=== PATIENT | female | born 1980 | race Caucasian/White ===

== ENCOUNTER 2017-08-31 11:20 | Emergency (ER) | payer BC, OTHER ==
[~2017-08-31] VITALS: Ht 162.6 cm; Wt 84.4 kg
--- OUTSIDE RECORDS SUMMARY | 2017-08-31 11:29 | XMS REPORT | Continuity of Care Document ---
Author Author [facility] [employer]. Organization [facility]. Address Unknown Phone Unavailable Allergies Active Description Code Type Severity Reaction Onset Reported/Identified Relationship to Patient Clinical Status Yes ALBUMIN HUMAN 3374 DRUG INGREDI N/A N&V 11/08/2012 Yes ALBUMIN HUMAN 61383 DRUG INGREDI N/A NTV 11/08/2012 Yes EGGS OR EGG-DERIVED PRODUCTS 12 Drug Class ~Food N/A N&V 11/13/2012 Yes EGGS OR EGG-DERIVED PRODUCTS 12 Drug Class ~Food N/A NTV 11/13/2012 Yes FLU VIRUS VACCINE 4522 DRUG INGREDI N/A N&V 11/13/2012 Yes FLU VIRUS VACCINE 25271 DRUG INGREDI N/A NTV 11/13/2012 Yes Albumin X810 Drug Allergy Mild VOMITING 02/07/2013 Yes MDX - Albumin X810 Drug Allergy Mild VOMITING 02/07/2013 Medications There is no data. Problems Date Dx Coded Attending Type Code Diagnosis Diagnosed By 09/26/2014 Jose Angel Cruz 599.71 09/26/2014 Jose Angel Cruz 644.03 11/10/2014 Jose Angel Cruz 530.81 11/10/2014 Jose Angel Cruz 599.0 11/10/2014 Jose Angel Cruz 646.61 11/10/2014 Jose Angel Cruz 646.81 11/10/2014 Jose Angel Cruz 648.91 11/10/2014 Jose Angel Cruz 654.21 11/10/2014 Jose Angel Cruz 659.61 11/10/2014 Jose Angel Cruz 786.09 11/10/2014 Jose Angel Cruz V02.51 11/10/2014 Jose Angel Cruz V23.5 11/10/2014 Jose Angel Cruz V23.82 11/10/2014 Jose Angel Cruz V27.0 Procedures Code Description Performed By Performed On 74.1 11/07/2014 Results Test Result Range URINALYSIS, REFLEX CULTURE IF NEEDED - 08/22/16 13:41 APPEARANCE Clear [none] BILIRUBIN UA Negative Negative COLOR Colorless [none] GLUCOSE UA Negative Negative HEMOGLOBIN UA Negative Negative LEUKOCYTE ESTERASE UA Negative Negative NITRATE UA Negative Negative PH UA 7.0 5.0-8.0 PROTEIN UA Negative Negative RBC UA 0-3 /HPF 0-3 SPECIFIC GRAVITY UA 1.002 1.003-1.030 SQUAMOUS EPITHELIAL 1+ 1+ UROBILINOGEN UA 0.2 mg/dL 0.2 WBC UA 0-3 /HPF 0-3 [id number] Negative Negative Encounters ACCT No. Visit Date/Time Discharge Status Pt. Type Provider Facility Loc./Unit Complaint [id number] 11/07/2014 08:25:00 11/07/2014 23:59:59 CLS Inpatient Jose Angel Cruz [facility] OB [id number] 09/26/2014 17:04:00 09/26/2014 18:30:00 DIS Outpatient Jose Angel Cruz [facility] LDRO [id number] 06/04/2014 09:51:00 06/04/2014 23:59:59 CLS Outpatient Jose Angel Cruz [facility] COL.RAD [id number] 07/25/2013 10:35:00 07/25/2013 23:59:59 CLS Outpatient [id number] 07/18/2013 05:37:00 07/21/2013 17:50:00 DIS Inpatient [id number] 06/28/2013 21:01:00 06/28/2013 23:59:59 CLS Outpatient [id number] 02/07/2013 09:47:00 02/07/2013 14:45:00 DIS Outpatient [id number] 11/21/2016 13:42:01 11/21/2016 23:59:59 CLS Outpatient [facility] LAB [id number] 11/21/2016 09:10:59 11/21/2016 23:59:59 CLS Outpatient EDUARDO BUITRAGO [facility] [id number] 08/22/2016 13:28:09 08/22/2016 23:59:59 [facility] Outpatient [facility] [id number] 08/22/2016 13:27:38 08/22/2016 23:59:59 [facility] Outpatient EDUARDO BUITRAGO [facility] [id number] 03/08/2016 11:30:27 03/08/2016 23:59:59 [facility] Outpatient TRACY COOL [facility] [id number] 08/22/2016 09:56:52 Document Registration
[2017-08-31] MEDS ORDERED: PNV1TABL81 PO (12:07)
[2017-08-31] MEDS ORDERED: FOLI0.8C PO (12:07)
[2017-08-31 12:08] LABS: BASOPHILS % (AUTO) 0 % (0-10); EOSINOPHILS # (AUTO) 0.2 10^3/uL (0.0-0.3); EOSINOPHILS % (AUTO) 2 % (0-10); LYMPHOCYTES # (AUTO) 1.9 X 10^3 (1.0-4.0); LYMPHOCYTES % (AUTO) 21 % (12-44); MEAN CORPUSCULAR HEMOGLOBIN 32 PG (25-34); MEAN CORPUSCULAR HGB CONC 35 G/DL (32-36); MEAN CORPUSCULAR VOLUME 93 FL (80-99); MEAN PLATELET VOLUME 10.6 FL (7.4-10.4); MONOCYTES # (AUTO) 0.6 X 10^3 (0.0-1.0); MONOCYTES % (AUTO) 6 % (0-12); NEUTROPHILS # (AUTO) 6.7 X 10^3 (1.8-7.8); NEUTROPHILS % (AUTO) 71 % (42-75); PLATELET COUNT 248 10^3/uL (130-400); RED BLOOD COUNT 4.46 10^6/uL (4.35-5.85); RED CELL DISTRIBUTION WIDTH 13.6 % (10.0-14.5); WHITE BLOOD COUNT 9.4 10^3/uL (4.3-11.0)
[2017-08-31 12:25] LABS: ANION GAP 10 MMOL/L (5-14); BLOOD UREA NITROGEN 8 MG/DL (7-18); BUN/CREATININE RATIO 11; CALCIUM 9.1 MG/DL (8.5-10.1); CARBON DIOXIDE 22 MMOL/L (21-32); CHLORIDE 107 MMOL/L (98-107); CREATININE SERUM 0.76 MG/DL (0.60-1.30); GFR ESTIMATED > 60; GLUCOSE 85 MG/DL (70-105); POTASSIUM 3.7 MMOL/L (3.6-5.0); SODIUM 139 MMOL/L (135-145)
--- NOTE | 2017-08-31 13:29 | ED GU-Female ---
General Chief Complaint: -Female Stated Complaint: POSS MISCARRIAGE Nursing Triage Note: PT. STATES SHE STARTED BLEEDING LAST NIGHT. SHE DOES NOT SOAK THE PAD BUT BLEEDING IS STEADY. SHE DOES HAVE CRAMPING WHICH SHE RATES AT A "1". tHIS IS THE PT'S 5TH WITH A MISCARRIAGE AND DEMISE. THEREFORE PT. IS CONCERNED. HER OBGYN IS IN [place]. Nursing Sepsis Screen: No Definite Risk Allergies and Home Medications Allergies Coded Allergies: albumin colloid, human (Unverified Allergy, Unknown, NAUSEA, 08/31/17) PT. STATES SHE THROWS UP WITH ALBUMIN. SHE DOES NOT TAKE THE FLU SHOT FOR THAT REASON Home Medications Folic Acid 0.8 Mg Capsule, 3,200 MCG PO DAILY, (Reported) Pnv No.122/Iron/Folic Acid 1 Each Tablet, 1 EACH PO DAILY, (Reported) Past Ifcuhia-Rvtxqh-Unlpuu Hx Patient Social History Alcohol Use: Occasionally Uses Recreational Drug Use: No 2nd Hand Smoke Exposure: No Recent Foreign Travel: No Contact w/Someone Who Travel: No Recent Infectious Disease Expo: No Surgeries History of Surgeries: Yes ( SURGERY DEMISE) Respiratory History of Respiratory Disorde: No Cardiovascular History of Cardiac Disorders: No Neurological History of Neurological Disord: No Reproductive System Sexually Transmitted Disease: No Female Reproductive Disorders: Endometriosis Genitourinary History of Genitourinary Disor: Yes Genitourinary Disorders: Kidney Stones Gastrointestinal History of Gastrointestinal Di: No Musculoskeletal History of Musculoskeletal Dis: No Endocrine History of Endocrine Disorders: No HEENT History of HEENT Disorders: No Cancer History of Cancer: No Psychosocial History of Psychiatric Problem: No Physical Exam Vital Signs Vital Sign - Last 12Hours 08/31/17 12:28 Temp 98.4 Pulse 78 Resp 18 B/P (MAP) 144/78 (100) Pulse Ox 97 Capillary Refill : Less Than 3 Seconds Progress/Results/Core Measures Suspected Sepsis Recent Fever Within 48 Hours: No Infection Criteria Present: None New/Unexplained Altered Menta: No Sepsis Screen: No Definite Risk Sepsis Diagnosis: SIRS Temperature:98.4 Pulse: 78 Respiratory Rate: 18 Laboratory Tests 08/31/17 11:58: White Blood Count 9.4 Blood Pressure 144 /78 Mean: 100 Laboratory Tests 08/31/17 11:58: Creatinine 0.76, Platelet Count 248 Results/Orders Lab Results Laboratory Tests Test 08/31/17 11:58 Range/Units White Blood Count 9.4 4.3-11.0 10^3/uL Red Blood Count 4.46 4.35-5.85 10^6/uL Hemoglobin 14.3 11.5-16.0 G/DL Hematocrit 42 35-52 % Mean Corpuscular Volume 93 80-99 FL Mean Corpuscular Hemoglobin 32 25-34 PG Mean Corpuscular Hemoglobin Concent 35 32-36 G/DL Red Cell Distribution Width 13.6 10.0-14.5 % Platelet Count 248 130-400 10^3/uL Mean Platelet Volume 10.6 H 7.4-10.4 FL Neutrophils (%) (Auto) 71 42-75 % Lymphocytes (%) (Auto) 21 12-44 % Monocytes (%) (Auto) 6 0-12 % Eosinophils (%) (Auto) 2 0-10 % Basophils (%) (Auto) 0 0-10 % Neutrophils # (Auto) 6.7 1.8-7.8 X 10^3 Lymphocytes # (Auto) 1.9 1.0-4.0 X 10^3 Monocytes # (Auto) 0.6 0.0-1.0 X 10^3 Eosinophils # (Auto) 0.2 0.0-0.3 10^3/uL Basophils # (Auto) 0.0 0.0-0.1 10^3/uL Sodium Level 139 135-145 MMOL/L Potassium Level 3.7 3.6-5.0 MMOL/L Chloride Level 107 98-107 MMOL/L Carbon Dioxide Level 22 21-32 MMOL/L Anion Gap 10 5-14 MMOL/L Blood Urea Nitrogen 8 7-18 MG/DL Creatinine 0.76 0.60-1.30 MG/DL Estimat Glomerular Filtration Rate > 60 BUN/Creatinine Ratio 11 Glucose Level 85 70-105 MG/DL Calcium Level 9.1 8.5-10.1 MG/DL Human Chorionic Gonadotropin, Quant 837 H <5 MIU/ML My Orders Orders - TIN COSTA DO Abo Rh Type (08/31/17 12:02) Basic Metabolic Panel (08/31/17 12:02) Cbc With Automated Diff (08/31/17 12:02) Hcg,Quantitative (08/31/17 12:02) Us Ob<14 Wks Sngle W/Transvag (08/31/17 12:02) Vital Signs/I&O Vital Sign - Last 12Hours 08/31/17 12:28 Temp 98.4 Pulse 78 Resp 18 B/P (MAP) 144/78 (100) Pulse Ox 97 Capillary Refill : Less Than 3 Seconds Blood Pressure Mean: 100 Departure Impression Impression: Primary Impression: Threatened in first trimester Disposition: 01 HOME, SELF-CARE Condition: Stable Departure-Patient Inst. Referrals: NO,LOCAL PHYSICIAN (PCP/Family) Primary Care Physician Patient Instructions: Threatened Miscarriage (DC) Add. Discharge Instructions: NOTHING IN VAGINA--NO TAMPONS, DOUCHING OR INTERCOURSE LOTS OF FLUIDS KEEP AN ACCURATE PAD COUNT--RETURN TO ER IF YOU SOAK MORE THAN 1 MAXI PAD AN HOUR TYLENOL NEEDED FOR PAIN --RETURN TO ER IF PAIN BECOMES SEVERE KEEP YOUR APPOINTMENT NEXT WEEK WITH YOUR HARNESS INSPECTOR All discharge instructions reviewed with patient and/or family. Voiced understanding. TIN COSTA DO Aug 31, 2017 13:29
--- NOTE | 2017-08-31 13:31 | Diagnostic Imaging Report ---
OB ultrasound. INDICATION: Vaginal bleeding. FINDINGS: There is a cystic structure in the endometrial stripe seen which could be a gestational sac. It is associated with a mean sac diameter of 5 mm. No embryo or yolk sac is seen at this time. No subchorionic hemorrhage is seen. The size of the sac could correlate with 5 weeks and 0 days gestation and with CLAUDIO of 05/03/2018. The right ovary is 2.7 x 1.6 x 2.3 cm in size and demonstrates color Doppler vascularity. The left ovary is obscured by bowel gas. IMPRESSION: Suggestion of a gestational sac in the endometrial stripe. This is likely a very early normal . Serial beta-hCG and follow-up ultrasound in one week is recommended to confirm findings. Pseudo-gestational sac of ectopic or failed is not entirely excluded. Correlate clinically. Dictated by: Dictated on workstation # [id number]
[2017-08-31 18:26] VITALS: BP 138/82
== END 2017-08-31 13:45 | disposition home or self-care (01) ==
LOC: ER 11:25
DX: O20.0 Threatened abortion (principal); Z3A.01 Less than 8 weeks gestation of pregnancy; Z87.442 Personal history of urinary calculi; Z87.59 Personal history of other complications of pregnancy, childbirth and the puerperium
CPT/HCPCS: 36415; 76801; 76817; 80048; 84702; 85025; 86900; 86901; 99282

== ENCOUNTER → 2018-05-25 | Outpatient (CLI) | payer BC ==
[~2018-05-25] MED LIST: FOLI0.8C PO; PNV1TABL81 PO
--- NOTE | 2018-05-25 17:22 | Diagnostic Imaging Report ---
INDICATION: Large for gestational age. TECHNIQUE: Multiple real-time grayscale images were obtained over the gravid uterus. COMPARISON: None relevant. FINDINGS: Single live intrauterine with anatomic measurements corresponding to a 35 week, 4 day gestation. Grade 2 posterior placenta. heart rate 155 beats per minute and regular. Fetus is in transverse presentation. EDGAR 14.0. Biometrical measurements are as follows: Biparietal 8.70 cm, age 35 weeks 1 days. Head circumference 33.38 cm, age 38 weeks 2 days. Abdominal circumference 31.19 cm, age 35 weeks 1 days. Femur length 6.46 cm, age 33 weeks 3 days. Sonographic estimate age: 35 weeks 4 days. Sonographic estimated date of delivery: 06/25/18. Estimated Weight: 2556 gm (+/- 373 gm). LMP percentile: 85%. heart rate: 155 beats per minute. number: 1 of 1. IMPRESSION: Single live intrauterine with anatomic measurements corresponding to a 35 week, 4 day gestation. Dictated by: Dictated on workstation # [id number]
== END ==
LOC: RAD 16:12
PROVIDERS: ATTEND Obstetrics & Gynecology
DX: O36.63X0 Maternal care for excessive fetal growth, third trimester, not applicable or unspecified (principal); Z3A.35 35 weeks gestation of pregnancy
CPT/HCPCS: 76805

== ENCOUNTER → 2019-05-10 | Outpatient (CLI) | payer BC ==
--- NOTE | 2019-05-10 21:01 | Diagnostic Imaging Report ---
INDICATION: Breast pain. EXAMINATION: Left breast ultrasound, complete. COMPARISON: There are no prior studies available for comparison. FINDINGS: There is no discrete solid or cystic mass within the left breast. There is no sign of an abscess either. Reportedly, the patient has a baseline mammogram scheduled. IMPRESSION: 1. There is no evidence for malignancy or for an acute abnormality. Clinical followup is recommended. 2. A baseline mammogram is pending. ACR BI-RADS Category 1: Negative. Result letter will be mailed to the patient. Note: At least 10% of breast cancer is not imaged by mammography. Dictated by: Dictated on workstation # [id number]
== END ==
LOC: RAD 09:16
PROVIDERS: ATTEND Physician Assistant Medical
DX: N64.4 Mastodynia (principal)
CPT/HCPCS: 76641

== ENCOUNTER 2020-04-07 22:56 | Emergency (ER) | payer BC, OTHER ==
[~2020-04-07] VITALS: Ht 162 cm; Wt 88.5 kg
--- NOTE | 2020-04-07 23:23 | ED GU-Female ---
General Chief Complaint: OB < 20 WEEKS Stated Complaint: SPOTTING, ABD CRAMPING 12 WKS Source: patient History of Present Illness Date Seen by Provider: Apr 07, 2020 Time Seen by Provider: 23:10 Initial Comments PT ARRIVES VIA POV FROM HOME STATES IMMEDIATELY PRIOR TO ARRIVAL, SHE BEGAN "SPOTTING" --WAS JUST A SMALL AMOUNT OF DARK ROWN BLOOD ON TISSUE WITH WIPING AFTER VOIDING. IS NOT BLEEDING NOW, AND HAS NOT USED ANY PADS THINKS MAYBE SHE HAS HAD SLIGHT LOWER ABDOMINAL/PELVIC CRAMPING--BUT "JUST BARELY" NO URINARY SYMPTOMS PT IS 12 WEEKS WITH LMP OF 01/15/[address] CRAWFORD ON 03/26/20 AND HAD A NORMAL ULTRASOUND AT THAT TIME. 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, BILATERAL CLUB FEET, HYDROCEPHALUS, AND GRADE 2 CHIARI MALFORMATION--PT HAD IN-UTERO "OPEN SURGERY"--CHILD LATER SOMETIME AFTER -2ND CHILD--NORMAL -3RD CHILD--SPOTTING AND ALSO PASSED KIDNEY STONES DURING -4TH AND 5TH PREGNANCIES ENDED IN MISCARRIAGES -6TH CHILD--SPOTTING AND LOTS OF NAUSEA/VOMITING PT HAS HAD X 4 PT HAS HAD SIGNIFICANT NAUSEA AND VOMITING WITH THIS --TAKES ZOFRAN 8 MG BID EVERY DAY, AND PHENERGAN 12.5 MG SUPPOSITORY AT LEAST ONCE A DAY NO FEVER OR RECENT ILLNESS PCP: NONE--USED TO SEE A DR AT [facility] IN [place], BUT HAS SINCE LEFT THE PRACTICE [employer]NF[employer]CEMENT MAJOR: DR. CRAWFORD Allergies and Home Medications Allergies Coded Allergies: albumin colloid, human (Unverified Allergy, Unknown, NAUSEA, 08/31/17) PT. STATES SHE THROWS UP WITH ALBUMIN. SHE DOES NOT TAKE THE FLU SHOT FOR THAT REASON Home Medications Folic Acid 0.8 Mg Capsule, 3,200 MCG PO DAILY, (Reported) Nitrofurantoin Monohyd/M-Cryst 100 Mg Capsule, 1 TAB PO BID Prescribed by: TIN COSTA on 04/08/20 0119 Pnv No.122/Iron/Folic Acid 1 Each Tablet, 1 EACH PO DAILY, (Reported) Patient Home Medication List Home Medication List Reviewed: Yes Review of Systems Review of Systems Constitutional: no symptoms reported; No chills, No diaphoresis, No dizziness, No fever Respiratory: no symptoms reported Cardiovascular: no symptoms reported Gastrointestinal: see HPI, abdominal pain, nausea, vomiting Genitourinary: see HPI : Yes LMP: January 15, 2020 Musculoskeletal: no symptoms reported; No back pain Skin: no symptoms reported Psychiatric/Neurological: No Symptoms Reported Endocrine: No Symptoms Reported Hematologic/Lymphatic: No Symptoms Reported Past Wqmowbk-Useoss-Zqoxia Hx Past Med/Social Hx: Reviewed and Corrections made Patient Social History Alcohol Use: Occasionally Uses Recreational Drug Use: No Smoking Status: Never a Smoker 2nd Hand Smoke Exposure: No Recent Foreign Travel: No Contact w/Someone Who Travel: No Past Medical History Surgeries: Yes (OPEN SURGERY/ DEMISE; X 4;7 SURGERIES- ENDOMETRIOSIS) Abdominal, Section Respiratory: No Cardiac: No Neurological: No : Yes Last Menstrual Period: January 15, 2020 Hx : 6 (1ST CHILD-CONGENITAL DEFORMITIES AND HAD OPEN SURGERY--SPINA BIFIDA, BILATERAL CLUB FEET, HYDROCEPHALUS, CHIARI 2 MALFORMATIONHAD DEMISE-2ND [id number] CHILD-SPOTTING AND PASSED KIDNEY STONE-4TH AND 5TH PREGNANCIES--MISCARRIAGES-6TH --SPOTTING AND SIGNIFICANT NAUSEA/VOMITING) Hx Para: 4 Hx Total # of Abortions (Sp): 2 (4TH AND 5TH PREGNANCIES) Reproductive Disorders: Yes (7 SURGERIES FOR ENDOMETRIOSIS; OPEN SURGERY) Female Reproductive Disorders: Endometriosis Sexually Transmitted Disease: No Genitourinary: Yes Bladder Infection, Kidney Stones Gastrointestinal: No Musculoskeletal: No Endocrine: No HEENT: No Cancer: No Psychosocial: No Integumentary: No Blood Disorders: No Physical Exam Vital Signs Vital Signs - First Documented 04/07/20 23:02 Temp 37.1 Pulse 92 Resp 17 B/P (MAP) 151/85 (107) Pulse Ox 98 O2 Delivery Room Air Capillary Refill : Height, Weight, BMI Height: 5'4.00" Weight: 186lbs. oz. 84.440053km; BMI Method:Stated General Appearance: WD/WN, no apparent distress, other (ANXIOUS) Cardiovascular: regular rate, rhythm, no murmur Respiratory: normal breath sounds, no respiratory distress, no accessory muscle use Gastrointestinal: normal bowel sounds, non tender, soft, no organomegaly, no pulsatile mass Pelvic: other (NO VAGINAL BLEEDING AT THIS TIME) Back: no CVA tenderness Extremities: normal inspection Neurologic/Psychiatric: coffee brewer II-XII nml as tested, no motor/sensory deficits, alert, oriented x 3 Skin: normal color, warm/dry Progress/Results/Core Measures Suspected Sepsis SIRS Temperature: Pulse: Respiratory Rate: Laboratory Tests 04/07/20 23:24: White Blood Count 10.2 Blood Pressure / Mean: Laboratory Tests 04/07/20 23:24: Creatinine 0.72, Platelet Count 267 Results/Orders Lab Results Laboratory Tests Test 04/07/20 23:07 04/07/20 23:24 Range/Units Urine Color YELLOW Urine Clarity SL CLOUDY Urine pH 6.0 5-9 Urine Specific [place] 1.020 1.016-1.022 Urine Protein NEGATIVE NEGATIVE Urine Glucose (UA) NEGATIVE NEGATIVE Urine Ketones NEGATIVE NEGATIVE Urine Nitrite NEGATIVE NEGATIVE Urine Bilirubin NEGATIVE NEGATIVE Urine Urobilinogen 0.2 < = 1.0 MG/DL Urine Leukocyte Esterase TRACE H NEGATIVE Urine RBC (Auto) 2+ H NEGATIVE Urine RBC 2-5 H /HPF Urine WBC 0-2 /HPF Urine Squamous Epithelial Cells 5-10 /HPF Urine Crystals NONE /LPF Urine Bacteria MODERATE H /HPF Urine Casts NONE /LPF Urine Mucus SMALL H /LPF Urine Culture Indicated YES White Blood Count 10.2 4.3-11.0 10^3/uL Red Blood Count 4.15 L 4.35-5.85 10^6/uL Hemoglobin 13.0 11.5-16.0 G/DL Hematocrit 38 35-52 % Mean Corpuscular Volume 91 80-99 FL Mean Corpuscular Hemoglobin 31 25-34 PG Mean Corpuscular Hemoglobin Concent 34 32-36 G/DL Red Cell Distribution Width 14.0 10.0-14.5 % Platelet Count 267 130-400 10^3/uL Mean Platelet Volume 10.4 7.4-10.4 FL Neutrophils (%) (Auto) 70 42-75 % Lymphocytes (%) (Auto) 22 12-44 % Monocytes (%) (Auto) 6 0-12 % Eosinophils (%) (Auto) 3 0-10 % Basophils (%) (Auto) 0 0-10 % Neutrophils # (Auto) 7.1 1.8-7.8 X 10^3 Lymphocytes # (Auto) 2.2 1.0-4.0 X 10^3 Monocytes # (Auto) 0.6 0.0-1.0 X 10^3 Eosinophils # (Auto) 0.3 0.0-0.3 10^3/uL Basophils # (Auto) 0.0 0.0-0.1 10^3/uL Sodium Level 138 135-145 MMOL/L Potassium Level 3.5 L 3.6-5.0 MMOL/L Chloride Level 106 98-107 MMOL/L Carbon Dioxide Level 19 L 21-32 MMOL/L Anion Gap 13 5-14 MMOL/L Blood Urea Nitrogen 10 7-18 MG/DL Creatinine 0.72 0.60-1.30 MG/DL Estimat Glomerular Filtration Rate > 60 BUN/Creatinine Ratio 14 Glucose Level 97 70-105 MG/DL Calcium Level 9.6 8.5-10.1 MG/DL Human Chorionic Gonadotropin, Quant [id number] H <5 MIU/ML My Orders Orders - TIN COSTA DO Abo Rh Type (04/07/20 23:21) Basic Metabolic Panel (04/07/20 23:21) Cbc With Automated Diff (04/07/20 23:21) Hcg,Quantitative (04/07/20 23:21) Ua Culture If Indicated (04/07/20 23:21) Heart Tones (04/07/20 23:21) Urine Culture (04/07/20 23:07) Nitrofurantoin Capsule,Macro (Macrobid C (04/08/20 01:15) Vital Signs/I&O 04/07/20 23:02 Temp 37.1 Pulse 92 Resp 17 B/P (MAP) 151/85 (107) Pulse Ox 98 O2 Delivery Room Air Capillary Refill : Progress Note : Progress Note FHR 160'S NO VAGINAL BLEEDING NO PAIN OR CRAMPING DURING ER STAY NO ULTRASOUND AVAILABLE HERE AT THIS TIME PT FEELS COMFORTABLE GOING HOME, PT STATES SHE HAS HAD SPOTTING WITH 3 OF HER 7 PREGNANCIES Departure Impression Primary Impression: Threatened in early Additional Impression: UTI (urinary tract infection) in in first trimester Disposition: HOME, SELF-CARE Condition: Stable Departure-Patient Inst. Referrals: NATALYA ANTUNEZ (PCP) Primary Care Physician AVIS CRAWFORD DO Patient Instructions: Bleeding With (DC), Urinary Tract Infections in , Threatened Miscarriage (DC) Add. Discharge Instructions: LOTS OF CLEAR LIQUIDS--NO COFFEE, POP OR TEA NOTHING IN VAGINA--NO TAMPONS, DOUCHING OR INTERCOURSE KEEP AN ACCURATE PAD COUNT--RETURN IF SOAKING MORE THAN 1 MAXI PAD AN HOUR FOLLOW UP WITH DR. CRAWFORD THIS WEEK FOR FURTHER CARE--CALL IN AM TO MAKE AN APPOINTMENT All discharge instructions reviewed with patient and/or family. Voiced understanding. Scripts Nitrofurantoin Monohyd/M-Cryst (Macrobid 100 mg Capsule) 100 Mg Capsule 1 TAB PO BID, #20 CAP Prov: TIN COSTA DO 04/08/20 TIN COSTA DO Apr 07, 2020 23:23
[2020-04-07 23:31] LABS: BILIRUBIN,URINE NEGATIVE (NEGATIVE); CLARITY,URINE SL CLOUDY; COLOR,URINE YELLOW; GLUCOSE, URINE (UA) NEGATIVE (NEGATIVE); KETONES,URINE NEGATIVE (NEGATIVE); LEUKOCYTE ESTERASE ,URINE TRACE (NEGATIVE); NITRITE,URINE NEGATIVE (NEGATIVE); PROTEIN,URINE NEGATIVE (NEGATIVE)
[2020-04-07 23:44] LABS: BASOPHILS % (AUTO) 0 % (0-10); EOSINOPHILS # (AUTO) 0.3 10^3/uL (0.0-0.3); EOSINOPHILS % (AUTO) 3 % (0-10); HEMATOCRIT 38 % (35-52); LYMPHOCYTES # (AUTO) 2.2 X 10^3 (1.0-4.0); LYMPHOCYTES % (AUTO) 22 % (12-44); MEAN CORPUSCULAR HEMOGLOBIN 31 PG (25-34); MEAN CORPUSCULAR HGB CONC 34 G/DL (32-36); MEAN CORPUSCULAR VOLUME 91 FL (80-99); MEAN PLATELET VOLUME 10.4 FL (7.4-10.4); MONOCYTES # (AUTO) 0.6 X 10^3 (0.0-1.0); MONOCYTES % (AUTO) 6 % (0-12); NEUTROPHILS # (AUTO) 7.1 X 10^3 (1.8-7.8); NEUTROPHILS % (AUTO) 70 % (42-75); PLATELET COUNT 267 10^3/uL (130-400); WHITE BLOOD COUNT 10.2 10^3/uL (4.3-11.0)
[2020-04-07 23:48] LABS: BACTERIA,URINE MODERATE /HPF; WBC,URINE 0-2 /HPF
[2020-04-07 23:52] LABS: CHLORIDE 106 MMOL/L (98-107); POTASSIUM 3.5 MMOL/L (3.6-5.0); SODIUM 138 MMOL/L (135-145)
[2020-04-07 23:54] LABS: CALCIUM 9.6 MG/DL (8.5-10.1); GLUCOSE 97 MG/DL (70-105)
[2020-04-07 23:56] LABS: CARBON DIOXIDE 19 MMOL/L (21-32)
[2020-04-07 23:58] LABS: CREATININE SERUM 0.72 MG/DL (0.60-1.30); GFR ESTIMATED > 60
[2020-04-07 23:59] LABS: BUN/CREATININE RATIO 14
--- OUTSIDE RECORDS SUMMARY | 2020-04-08 00:27 | XMS REPORT | Continuity of Care Document ---
Author Author [facility] Organization [facility] Address Unknown Phone Unavailable Care Team Providers Care Design Chief Name Role Phone Unavailable Unavailable Insurance Providers Payer Name Policy Type C overed Libertarian Covered Libertarian Id Relationship Subscriber Subscriber Id [facility] [id number] ATTILA JARRETT [id number] Problems No Known Problems or Medical conditions. Allergies, Adverse Reactions, Alerts Allergen Type Severity Reaction Last Updated Albumin Allergy Mild VOMITING 02/07/13 Medications Medication Dose Route Sig Days/Qty ZOFRAN 4MG T4 MG/TAB (Ondansetron) 4 PO PRN FOLIC [id number] MCG (Folic Acid) 3200 MCG QD B-6100 MG (Pyridoxine) 100 PO QD Vital Signs Vital Reading Collection Date/Time Result Blood Pressure 02/07/13 2:30pm 128/70 Ortho 02/07/13 10:00am S I Temperature 02/07/13 2:30pm 98.2 Source 02/07/13 2:30pm O Respirations 02/07/13 2:30pm 16 Pulse 02/07/13 2:30pm 80 Height(cm) 02/07/13 10:02am 162.6 Height(ft) 02/07/13 10:02am 5 Height(in) 02/07/13 10:02am 04 Weight(Kg) 02/07/13 10:02am 74.5 Weight(lbs) 02/07/13 10:02am 164.0 Results No Known Relevant Diagnostic Tests, Laboratory Data and/or Discharge Summary. Encounters Encounter Location Date/ Time Departed Clinical [facility] 02/07/13 2:45pm
[2020-04-08] MEDS ORDERED: NITROFURANTOIN 100 MG (MACROBID) CAPSULE PO ONE (01:15)
[2020-04-08] MEDS ORDERED: NITR-65 PO (01:19)
[2020-04-08 01:38] VITALS: BP 137/97
== END 2020-04-08 01:38 | disposition home or self-care (01) ==
LOC: EDUNIT# 22:56 → ER 22:58
DX: O20.0 Threatened abortion (principal); O23.41 Unspecified infection of urinary tract in pregnancy, first trimester; Z3A.12 12 weeks gestation of pregnancy; Z88.8 Allergy status to other drugs, medicaments and biological substances
CPT/HCPCS: 36415; 80048; 81000; 84702; 85025; 86900; 86901; 87088

== ENCOUNTER → 2020-06-03 | Outpatient (CLI) | payer OTHER ==
[~2020-06-03] MED LIST changes: +NITR-65 PO
--- NOTE | 2020-06-03 14:20 | Diagnostic Imaging Report ---
INDICATION: survey. TECHNIQUE: Multiple real-time grayscale images were obtained over the gravid uterus. COMPARISON: None FINDINGS: There is a single live fetus in a transverse presentation with head to maternal right. heart rate was recorded at 150 bpm. Placenta is posterior. No previa is detected. Amniotic fluid volume is normal. survey demonstrates kidneys to show some slight renal pelvic dilatation measuring 5-6 mm. bladder and stomach are unremarkable. brain is unremarkable. There is a four-chamber heart. There is a three-vessel cord with normal insertion. spine is unremarkable. Biometrical measurements are as follows: Biparietal 4.53 cm, age 19 weeks 5 days. Head circumference 18.04 cm, age 20 weeks 4 days. Abdominal circumference 15.45 cm, age 20 weeks 5 days. Femur length 3.36 cm, age 20 weeks 4 days. Sonographic estimate age: 20 weeks 3 days. Sonographic estimated date of delivery: 10/18/2020. Estimated Weight: 361 gm (+/- 53 gm). LMP percentile: 76%. heart rate: 150 beats per minute. number: 1 of 1. IMPRESSION: 1. Single live IUP measuring 20 weeks 3 days gestational age. Estimated date of confinement sonographically is 10/18/2020. 2. survey is unremarkable apart from minimal dilatation of the renal pelves bilaterally. Follow-up could be performed. The study is otherwise unremarkable. Dictated by: Dictated on workstation # [id number]
== END ==
LOC: RAD 10:15
PROVIDERS: ATTEND Nurse Practitioner Women's Health
DX: Z34.92 Encounter for supervision of normal pregnancy, unspecified, second trimester (principal); Z3A.20 20 weeks gestation of pregnancy
CPT/HCPCS: 76805

== ENCOUNTER → 2020-07-22 | Outpatient (CLI) | payer OTHER ==
--- NOTE | 2020-07-22 13:13 | Diagnostic Imaging Report ---
INDICATION: Follow-up anatomy. TECHNIQUE: Multiple real-time grayscale images were obtained over the gravid uterus. COMPARISON: 06/03/2020. FINDINGS: There is a single live fetus in a cephalic presentation. heart rate was recorded at 149 bpm. The placenta is posterior and appears to be low lying in position. No definite previa is seen. The placental tip to the internal os is approximately 2.8 cm. Amniotic fluid index is approximately 16 cm. Evaluation of kidneys does show some continued slight renal pelvic dilatation measuring 7 mm on the right and 5 mm on the left. No other abnormality is detected. Biometrical measurements are as follows: Biparietal 6.81 cm, age 27 weeks 3 days. Head circumference 26.33 cm, age 28 weeks 5 days. Abdominal circumference 23.8 cm, age 28 weeks 1 days. Femur length 5.09 cm, age 27 weeks 2 days. Sonographic estimate age: 28 weeks 0 days. Sonographic estimated date of delivery: 10/14/2020. Estimated Weight: 1133 gm (+/- 165 gm). LMP percentile: 72%. heart rate: 149 beats per minute. number: 1 of 1. IMPRESSION: Single live IUP 28 weeks gestational age. There is a low-lying posterior placenta. Minimal renal pelvic dilatation appears to be stable when compared with exam from 06/03/2020. Dictated by: Dictated on workstation # [id number]
== END ==
LOC: RAD 12:30
PROVIDERS: ATTEND Obstetrics & Gynecology
DX: Z34.93 Encounter for supervision of normal pregnancy, unspecified, third trimester (principal); Z3A.28 28 weeks gestation of pregnancy
CPT/HCPCS: 76805

== ENCOUNTER → 2020-08-21 | Outpatient (CLI) | payer OTHER ==
--- NOTE | 2020-08-21 16:29 | Diagnostic Imaging Report ---
INDICATION: Supervision of . TECHNIQUE: Multiple real-time grayscale images were obtained over the gravid uterus. COMPARISON: 07/22/2020 FINDINGS: A single live intrauterine gestation is visualized in cephalic presentation. The placenta is posterior and not low lying measuring 6.5 cm from the cervix. heart rate is 147 bpm. The EDGAR measures 16.5 cm. There is upper limits of normal prominence of the right renal pelvis measuring 0.7 cm. The left kidney is unremarkable. The bladder, stomach, four-chamber heart, three-vessel cord, cord insertion are visualized and have a normal appearance. The intracranial contents and spine are not well seen due to position. Biometrical measurements are as follows: Biparietal 7.84 cm, age 31 weeks 4 days. Head circumference 29.03 cm, age 32 weeks 0 days. Abdominal circumference 28.11 cm, age 32 weeks 2 days. Femur length 6.16 cm, age 32 weeks 0 days. Sonographic estimate age: 32 weeks 0 days. Sonographic estimated date of delivery: 10/16/2020. Estimated Weight: 1884 gm (+/- 275 gm). LMP percentile: 39%. heart rate: 147 beats per minute. number: 1 of 1. Biophysical profile score is 8 out of 8. IMPRESSION: 1. Single live intrauterine gestation measuring 32 weeks 0 days with an estimated due date of 10/16/2020. These are concordant with the clinical dates. 2. Borderline pyelectasis on the right. Recommend follow-up as indicated. The remaining visualized anatomic structures are normal in appearance. Dictated by: Dictated on workstation # [id number]
== END ==
LOC: RAD 09:39
PROVIDERS: ATTEND Obstetrics & Gynecology
DX: O09.523 Supervision of elderly multigravida, third trimester (principal); Z3A.32 32 weeks gestation of pregnancy
CPT/HCPCS: 76805; 76819

== ENCOUNTER 2020-09-23 05:28 | Outpatient (RCR) | payer OTHER ==
[~2020-09-23] VITALS: Ht 163 cm; Wt 90.5 kg
[~2020-09-23 05:28] MED LIST changes: +ASCO500C17 PO; +FAMO20TA3 PO; +FERR142T7 PO; +NIFE10CA PO; +PEDI18TA2 PO
== END 2020-09-23 14:19 | disposition home or self-care (01) ==
LOC: PREOP 05:28
PROVIDERS: ATTEND Obstetrics & Gynecology
DX: Z01.812 Encounter for preprocedural laboratory examination (principal); O09.899 Supervision of other high risk pregnancies, unspecified trimester; Z3A.00 Weeks of gestation of pregnancy not specified; Z20.822 Contact with and (suspected) exposure to COVID-19
CPT/HCPCS: 87635

== ENCOUNTER 2020-09-28 06:11 | Inpatient (IN) | payer OTHER ==
--- NOTE | 2020-09-27 21:20 | History & Physical-OB ---
OB - Chief Complaint & HPI Date/Time Date of Admission: Date of Admission: 09/28/2020 Time Seen by a Provider: 07:00 Chief Complaint/History OB-Reason for Admission/Chief: Section (previous history of classical (midline) section; [facility] recommends delivery at 37 weeks due to risk of rupture) Hx : 7 Hx Para: 2223 Expected Date of Delivery: Oct 16, 2020 Gestational Age in Weeks: 37 Indication for : desires repeat (history of previous cs x 4 and history previous classical section. Needs 37 weeks section) History of Labs A+/- Rub I VDRL NR HBsAg - HIV - Other Advanced maternal age, multigravid complicated by contractions and gest hypertension requiring procardia otherwise uncomplicated. Had previou Allergies and Home Medications Allergies Coded Allergies: albumin colloid, human (Unverified Allergy, Unknown, NAUSEA, 08/31/17) PT. STATES SHE THROWS UP WITH ALBUMIN. SHE DOES NOT TAKE THE FLU SHOT FOR THAT REASON Home Medications Ascorbic Acid 500 Mg Capsule, 500 MG PO DAILY, (Reported) take with iron pill Famotidine 20 Mg Tablet, 40 MG PO HS, (Reported) take 2 (20mg) tabs Ferrous Sulfate Unknown Strength Tablet.er, 45 MG PO DAILY, (Reported) take with vitamin c tab Nifedipine 10 Mg Capsule, 10 MG PO Q6H PRN for contractions, (Reported) Pedi Mv No.79/Ferrous Fumarate 18 Mg Tab.chew, 2 TAB PO DAILY, (Reported) Patient Home Medication List Home Medication List Reviewed: Yes OB - History Hx of Present Ultrasounds: Normal mid trimester US Obstetrical Complications: Gestational Hypertension Medical Complications: None Information Induced Hypertension: Yes Maternal Gestational Diabetes: No Hemorrhage: No Obstetrical History Hx : 7 Hx Para: 4 Hx # Term Pregnancies: 2 Hx # Pregnancies: 2 Number of Living Children: 4 Hx Termination: Yes Hx Induced Hypertens: Yes Delivery History Hx Dystocia: No Hx Forceps Assisted Delivery: No Hx Vacuum Extraction Assisted: No Hx Placenta Abnormality: No Hx Distress: No Hx Large For Gestational Age I: No Hx Small for Gestational Age I: Yes Hx Section: Yes Hx Vaginal Delivery Post C-Sec: No Hx Blood Disorders: No Patient Past Medical History NC Social History/Family History Alcohol Use: Denies Use Recreational Drug Use: No Smoking Cessation: Never smoker 2nd Hand Smoke Exposure: No Immunizations Hepatitis A: No Hepatitis B: No Tetanus Booster (TDap): More than 5yrs (07/16/2020) Rubella: immune RPR/VDRL: Negative HBsAG: Negative OB - Admission Exam Physical Exam Vitals: See RN notes Heart: Rhythm Normal Lungs: Clear Extremities: Edema (1+) Cervical Dilatation: other (NE) Heart Rate: 130's Accelerations: Accelerations Present Decelerations: No Decelerations Short Term Variability: Present Hadoop Admin Variability: Average (6-25) Contractions on Admission: None OB - Assessment/Plan/Diagnosis Assessment Assessment: section Admission Dx 1. 37 + week gestation 2. History of previous section/classical; requires 37 week CS to prevent risk of uterine rupture 3. advanced maternal age, multigravida 4. contractions, gestational hypertension Plan repeat cs on 09/28/2020 Risk of bleeding, infection, injury to bowel, bladder and ureter. Risk of adhesions. Has signed appropriate consent forms. Covid screen was negative Prophylactic antibiotics and SCDs. Admission Status: Inpatient Order (span 2 midnights) Reason for Inpatient Admission: section Plan Plan: Section AVIS CRAWFORD DO Sep 27, 2020 21:20
[2020-09-28] VITALS (10 sets, daily range): BP systolic 117–145; BP diastolic 73–85
[~2020-09-28] VITALS: Ht 162.6 cm; Wt 90.8 kg
--- NOTE | 2020-09-28 06:10 | NUR ---
GUNNAR BRANDON presented to unit via ambulatory from ED, accompanied by adult male, for scheduled repeat section. GUNNAR BRANDON weighed, gowned, voided, and to bed. EFHM and TOCO applied, VS taken. GUNNAR BRANDON oriented to bed controls, call light, TV, heat, and A/C controls. above and further assessments carried out per PINEDA VALDEZ.
[~2020-09-28 06:11] MED LIST changes: +CITRIC ACID/SOB CIT (BICITRA) 30 ML UDC ONE; +FAMOTIDINE 20MG/2ML IV (PEPCID) ONE; +METOCLOPRAMIDE INJ 10 MG/2 ML (REGLAN) ONE; +ceFAZolin 2 GM IV Premixed 50 ML ONE
[2020-09-28] MEDS ORDERED: ceFAZolin 2 GM IV Premixed 50 ML IV ONE ×3 (06:15→06:30)
[2020-09-28] MEDS ORDERED: CITRIC ACID/SOB CIT (BICITRA) 30 ML UDC PO ONE ×4 (06:30)
[2020-09-28] MEDS ORDERED: METOCLOPRAMIDE INJ 10 MG/2 ML (REGLAN) IV ONE ×4 (06:30)
[2020-09-28] MEDS ORDERED: FAMOTIDINE 20MG/2ML IV (PEPCID) IVP ONE ×4 (06:30)
[2020-09-28] MEDS ORDERED: CATHETER FLUSH 10 ML SYR IV PRN ×4 (06:30)
[2020-09-28] MEDS ORDERED: LACTATED RINGERS 1,000 ML IV PRN ×8 (06:30)
[2020-09-28 06:46] LABS: BASOPHILS % (AUTO) 0 % (0-10); EOSINOPHILS # (AUTO) 0.2 10^3/uL (0.0-0.3); EOSINOPHILS % (AUTO) 2 % (0-10); HEMATOCRIT 33 % (35-52); LYMPHOCYTES # (AUTO) 1.5 10^3/uL (1.0-4.0); LYMPHOCYTES % (AUTO) 14 % (12-44); MEAN CORPUSCULAR HEMOGLOBIN 31 pg (25-34); MEAN CORPUSCULAR HGB CONC 33 g/dL (32-36); MEAN CORPUSCULAR VOLUME 95 fL (80-99); MEAN PLATELET VOLUME 9.8 fL (9.0-12.2); MONOCYTES # (AUTO) 0.9 10^3/uL (0.0-1.0); MONOCYTES % (AUTO) 8 % (0-12); NEUTROPHILS % (AUTO) 74 % (42-75); PLATELET COUNT 230 10^3/uL (130-400); WHITE BLOOD COUNT 10.8 10^3/uL (4.3-11.0)
[2020-09-28] MEDS ORDERED: fentaNYL INJECTION 100 MCG/2 ML AMP ONE (07:21)
[2020-09-28] MEDS ORDERED: KETAMINE/NaCl 50 MG/5 ML SYRINGE (ED ONLY) ONE (07:21)
[2020-09-28] MEDS ORDERED: OXYTOCIN PRE-MIX DRIP 1,000 ML IV ONE (07:41)
--- NOTE | 2020-09-28 07:48 | Progress Note-Pre Operative ---
Pre-Operative Progress Note H&P Reviewed The H&P was reviewed, patient examined and no changes noted. Date Seen by Provider: Sep 28, 2020 Time Seen by Provider: 07:30 Date H&P Reviewed: Sep 28, 2020 Time H&P Reviewed: 07:00 Pre-Operative Diagnosis: previous classical section, 37 week gestation (EDC 10/16/2020) AVIS CRAWFORD DO Sep 28, 2020 07:48
[2020-09-28 08:35] LABS: BILIRUBIN,URINE NEGATIVE (NEGATIVE); CLARITY,URINE CLEAR; COLOR,URINE YELLOW; GLUCOSE, URINE (UA) NEGATIVE (NEGATIVE); KETONES,URINE NEGATIVE (NEGATIVE); LEUKOCYTE ESTERASE ,URINE NEGATIVE (NEGATIVE); NITRITE,URINE NEGATIVE (NEGATIVE); PH,URINE 6.5 (5-9); PROTEIN,URINE TRACE (NEGATIVE)
[2020-09-28 08:42] LABS: BACTERIA,URINE MODERATE /HPF; SQUAMOUS EPITHELIAL CELL,UR 25-50 /HPF
[2020-09-28] MEDS ORDERED: ONDANSETRON 4 MG/2 ML (SDV) Z0FRAN ONE (08:49)
[2020-09-28] MEDS ORDERED: KETOROLAC 30 MG/ML VIAL ONE (08:49)
[2020-09-28] MEDS ORDERED: BUPIVACAINE 0.5% 30 ML (SENSORCAINE) VIAL ONE (08:58)
[2020-09-28] MEDS ORDERED: OXYTOCIN PRE-MIX DRIP 500 ML IV SCH (09:15)
[2020-09-28] MEDS ORDERED: morphine INJ 4 MG/ML 1 ML (VIAL/SYRINGE) IVP PRN (09:15)
[2020-09-28] MEDS ORDERED: TETANUS,DIPTH,PERTUSS P/F (BOOSTRIX) 0.5 ML VIAL IM SCH (09:15)
[2020-09-28] MEDS ORDERED: MEASLES,MUMPS,RUBELLA 1 EA INJ SC SCH (09:15)
--- NOTE | 2020-09-28 09:17 | Cesarean Section Operative ---
Procedure Procedure Note Pre-operative Diagnosis: Dinah Urbina is a 40 /Para 7 / 4, LC 3, Gestational Age 37 3/7 weeks (EDC 10/16/2020), history of previous intrauterine surgery (spina bifida) and previous classical section (requested by [facility] to repeat at 37 weeks) Post-operative Diagnosis: same Procedure: Repeat low transverse section Physician: AVIS CRAWFORD Estimated blood loss: 500 mL Disposition: stable Findings: Viable female , Apgars 8/9, weight 7#4ounces, intact placenta, 3vc, normal appearing uterus, tubes, and left ovary. Right ovary appears streak, atrophic. Evidence of think JAMES and evidence of uterine scar from previous intrauterine surgery. Indications:Dinah Urbina is a 40 /Para 7 / 4, LC 3,Gestational Age 37 3/7 weeks (EDC 10/16/2020), history of previous intrauterine surgery (spina bifida) and previous classical section (requested by [facility] to repeat at 37 weeks) for repeat section. Also history of contractions and gestational hypertension requiring procardia prescription. Procedure Details: The patient was seen in pre-op and the procedure was discussed with the patient in full, including the risks, benefits, and alternatives. All questions were answered. The patient was taken to the operating room and a time out was performed, verifying patient and procedure. After spinal anesthesia was placed by our anesthesia colleagues, the patient was placed in the dorsal supine with leftward tilt for uterine displacement.~ Her abdomen was then prepped and draped in the typical sterile fashion. A Pfannenstiel skin incision was made using a scalpel and carried down through the underlying fascia through the previous incision. The fascia was incised in the midline and tented up using Aaliyah clamps. On both the inferior and superior fascia side the rectus muscle was dissected off bluntly and sharply using Gaffney scissors. The peritoneum was identified and entered bluntly in the midline. This was then stretched laterally using manual strength. After entering the abdominal cavity and confirming lack of intraperitoneal adhesions, a large Catarino retract or was placed and the lower uterine segment was visualized. A bladder flap was created with the use of Metzenbaum scissors.~ A scalpel was utilized to make a low transverse uterine incision. Amniotomy was performed with an Allis clamp with return of clear fluid. The infant's head was grasped and brought to the level of the incision. A silastic suction was applied and infant was delivered without difficulty. Mouth and nares were suctioned with bulb suction. After the umbilical cord was clamped and cut, the infant was handed off to the pediatric staff. A sample of cord blood was then obtained. The placenta was delivered intact via uterine massage. The uterus was cleared of all clots and debris. The uterine incision was closed using 0 Vicryl in a running locked fashion. A second imbricated layer was placed using 0 Vicryl in a running fashion as well. The right tubes and ovary appeared normal , but the left was scarred and the left ovary atrophic. The abdominal gutters were cleared of all clots and debris. A final check of the uterine incision showed it to be hemostatic. The peritoneum was closed using 3-0 Vicryl in a running fashion. A loose stitch of 3-0 Vicryl was used to reapproximate the rectus muscles. The fascia was closed with 0 Vicryl in a running fashion. The subcutaneous space was hemostatic, and irrigated. The subcutaneous space was closed with 0 Plain in several single interrupted stitches. The skin was then closed using 4-0 Monocryl in a running subcuticular fashion. The skin edges were reapproximated together and were hemostatic. A pressure dressing was applied. All sponge, lap and needle counts were correct at the end of the procedure per nursing. Vitals - Labs Vital Signs - I&O Vital Signs Date Time Temp Pulse Resp B/P (MAP) Pulse Ox O2 Delivery O2 Flow Rate FiO2 09/28/20 08:55 Room Air 09/28/20 08:55 36.0 18 126/73 (90) 100 Room Air 09/28/20 06:28 36.7 121 18 98 Room Air Labs Laboratory Tests 09/28/20 06:35: White Blood Count 10.8, Red Blood Count 3.51L, Hemoglobin 11.0L, Hematocrit 33L, Mean Corpuscular Volume 95, Mean Corpuscular Hemoglobin 31, Mean Corpuscular Hemoglobin Concent 33, Red Cell Distribution Width 14.6H, Platelet Count 230, Mean Platelet Volume 9.8, Immature Granulocyte % (Auto) 1, Neutrophils (%) (Auto) 74, Lymphocytes (%) (Auto) 14, Monocytes (%) (Auto) 8, Eosinophils (%) (Auto) 2, Basophils (%) (Auto) 0, Neutrophils # (Auto) 8.0H, Lymphocytes # (Auto) 1.5, Monocytes # (Auto) 0.9, Eosinophils # (Auto) 0.2, Basophils # (Auto) 0.0, Immature Granulocyte # (Auto) 0.1 09/28/20 08:20: Urine Color YELLOW, Urine Clarity CLEAR, Urine pH 6.5, Urine Specific [place] 1.020, Urine Protein TRACEH, Urine Glucose (UA) NEGATIVE, Urine Ketones NEGATIVE, Urine Nitrite NEGATIVE, Urine Bilirubin NEGATIVE, Urine Urobilinogen 0.2, Urine Leukocyte Esterase NEGATIVE, Urine RBC (Auto) NEGATIVE, Urine RBC NONE, Urine WBC 5-10H, Urine Squamous Epithelial Cells 25-50H, Urine Crystals NONE, Urine Bacteria MODERATEH, Urine Casts NONE, Urine Mucus MODERATEH, Urine Culture Indicated YES AVIS CRAWFORD DO Sep 28, 2020 09:17
--- NOTE | 2020-09-28 10:00 | NUR ---
Pt to room 307 via bed accompanied by RN. Pt oriented to room and call light. Calf SCDs on and activated. IV pitocin to pump. packet explained. Pt denies questions or concerns at this time. Breakfast provided. Pt desires to go see infant as soon as possible. No further questions or concerns voiced at this time.
--- NOTE | 2020-09-28 11:15 | NUR ---
Pt assisted to wheelchair and to nsy accompanied by Byron Phelps RN to see infant. No s/s of distress noted.
--- NOTE | 2020-09-28 12:30 | NUR ---
Pt remains in nsy. No needs or concerns voiced.
--- NOTE | 2020-09-28 13:55 | NUR ---
Pt returned to room via wheelchair accompanied by Champ Cota RN. No s/s of distress noted.
[2020-09-28] MEDS ORDERED: ACETAMINOPHEN 500 MG TAB (TYLENOL) PO SCH (14:00)
[2020-09-28] MEDS ORDERED: CATHETER FLUSH 10 ML SYR IV SCH (14:00)
--- NOTE | 2020-09-28 15:00 | NUR ---
Pt assisted up to bathroom per Abdon Singh RN. +void. No questions or concerns voiced.
[2020-09-28] MEDS: KETOROLAC 30 MG/ML VIAL IV SCH ×2 (15:20→21:14)
[2020-09-28] MEDS: DOCUSATE SODIUM 100 MG (COLACE) CAP PO SCH (21:14)
[2020-09-29 00:40] VITALS: BP 115/69
[2020-09-29 03:33] VITALS: BP 124/82
[2020-09-29] MEDS: KETOROLAC 30 MG/ML VIAL IV SCH (03:33)
[2020-09-29 05:44] LABS: BASOPHILS % (AUTO) 0 % (0-10); EOSINOPHILS # (AUTO) 0.3 10^3/uL (0.0-0.3); EOSINOPHILS % (AUTO) 2 % (0-10); HEMATOCRIT 29 % (35-52); HEMOGLOBIN 9.4 g/dL (11.5-16.0); LYMPHOCYTES # (AUTO) 0.9 10^3/uL (1.0-4.0); LYMPHOCYTES % (AUTO) 8 % (12-44); MEAN CORPUSCULAR HEMOGLOBIN 32 pg (25-34); MEAN CORPUSCULAR HGB CONC 32 g/dL (32-36); MEAN CORPUSCULAR VOLUME 97 fL (80-99); MEAN PLATELET VOLUME 10.3 fL (9.0-12.2); MONOCYTES # (AUTO) 0.8 10^3/uL (0.0-1.0); MONOCYTES % (AUTO) 7 % (0-12); NEUTROPHILS # (AUTO) 9.4 10^3/uL (1.8-7.8); NEUTROPHILS % (AUTO) 82 % (42-75); PLATELET COUNT 193 10^3/uL (130-400); WHITE BLOOD COUNT 11.5 10^3/uL (4.3-11.0)
--- NOTE | 2020-09-29 07:12 | Anesthesia-Regional Post-Op ---
Regional Patient Condition Mental Status: Alert, Oriented x3 Circulation: Same as Pre-Op Headache: Absent Sensation: Full Recovery Motor Block: Absent Post Op Complications Complications None Follow Up Care/Instructions Patient Instructions None needed. Anesthesia/Patient Condition Patient is doing well, no complaints, stable vital signs, no apparent adverse anesthesia problems. No complications reported per nursing. RANDOLPH URIOSTEGUI CRNA Sep 29, 2020 07:12
--- NOTE | 2020-09-29 08:42 | Postpartum Progress Note ---
Post Op Post-operative Day #1 s/p RLTCS Subjective: Patient is without complaints. Ambulating, voiding after peterson removed. Tolerating a regular diet without nausea or vomiting. Normal lochia. Pain is well controlled with oral pain medications. Passing flatus. breast feeding. [] Objective: 09/28/20 09/29/20 09/29/20 21:16 00:40 03:33 Temp 36.9 36.8 36.4 Pulse 81 82 80 Resp 18 18 18 B/P (MAP) 145/85 (105) 115/69 (84) 124/82 (96) Pulse Ox 98 98 98 09/29/20 00:00 Intake Total 1700 ml Output Total 1350 ml Balance 350 ml Laboratory Tests Test 09/29/20 05:10 Range/Units White Blood Count 11.5 H 4.3-11.0 10^3/uL Red Blood Count 2.98 L 3.80-5.11 10^6/uL Hemoglobin 9.4 L 11.5-16.0 g/dL Hematocrit 29 L 35-52 % Mean Corpuscular Volume 97 80-99 fL Mean Corpuscular Hemoglobin 32 25-34 pg Mean Corpuscular Hemoglobin Concent 32 32-36 g/dL Red Cell Distribution Width 14.8 H 10.0-14.5 % Platelet Count 193 130-400 10^3/uL Mean Platelet Volume 10.3 9.0-12.2 fL Immature Granulocyte % (Auto) 1 % Neutrophils (%) (Auto) 82 H 42-75 % Lymphocytes (%) (Auto) 8 L 12-44 % Monocytes (%) (Auto) 7 0-12 % Eosinophils (%) (Auto) 2 0-10 % Basophils (%) (Auto) 0 0-10 % Neutrophils # (Auto) 9.4 H 1.8-7.8 10^3/uL Lymphocytes # (Auto) 0.9 L 1.0-4.0 10^3/uL Monocytes # (Auto) 0.8 0.0-1.0 10^3/uL Eosinophils # (Auto) 0.3 0.0-0.3 10^3/uL Basophils # (Auto) 0.0 0.0-0.1 10^3/uL Immature Granulocyte # (Auto) 0.1 0.0-0.1 10^3/uL Physical Exam: General - Alert and oriented, no apparent distress Abdomen - Soft, appropriately tender to palpation, non-distended, fundus firm at umbilicus Incision - clean, dry and intact; no erythema or induration, no drainage Extremities - no edema, negative Mayuri's bilaterally [] Assessment: [] post-operative day # [], status post []. Recovering well, hemodynamically stable Acute blood loss anemia [] Plan: Routine post-operative care. Encourage breast feeding. Encourage ambulation. VTE prophylaxis: SCDs. Ferrous sulfate supplementation. Plan for discharge [] Vitals - Labs Vital Signs - I&O Vital Signs Date Time Temp Pulse Resp B/P (MAP) Pulse Ox O2 Delivery O2 Flow Rate FiO2 09/29/20 03:33 36.4 80 18 124/82 (96) 98 09/29/20 00:40 36.8 82 18 115/69 (84) 98 09/28/20 21:16 36.9 81 18 145/85 (105) 98 09/28/20 15:14 37.0 91 18 136/80 (98) 98 09/28/20 10:30 36.7 80 18 122/80 (94) 09/28/20 10:00 36.5 83 18 119/74 (89) 99 09/28/20 09:54 36.1 18 122/80 (94) 99 Room Air 09/28/20 09:54 Room Air 09/28/20 09:40 Room Air 09/28/20 09:40 36.1 18 120/74 (89) 100 Room Air 09/28/20 09:25 Room Air 09/28/20 09:25 36.0 18 117/79 (92) 99 Room Air 09/28/20 09:10 Room Air 09/28/20 09:10 36.0 18 117/77 (90) 100 Room Air 09/28/20 08:55 Room Air 09/28/20 08:55 36.0 18 126/73 (90) 100 Room Air I & O 09/29/20 07:00 Intake Total 2500 ml Output Total 3050 ml Balance -550 ml Labs Laboratory Tests 09/29/20 05:10: White Blood Count 11.5H, Red Blood Count 2.98L, Hemoglobin 9.4L, Hematocrit 29L, Mean Corpuscular Volume 97, Mean Corpuscular Hemoglobin 32, Mean Corpuscular Hemoglobin Concent 32, Red Cell Distribution Width 14.8H, Platelet Count 193, Mean Platelet Volume 10.3, Immature Granulocyte % (Auto) 1, Neutrophils (%) (Auto) 82H, Lymphocytes (%) (Auto) 8L, Monocytes (%) (Auto) 7, Eosinophils (%) (Auto) 2, Basophils (%) (Auto) 0, Neutrophils # (Auto) 9.4H, Lymphocytes # (Auto) 0.9L, Monocytes # (Auto) 0.8, Eosinophils # (Auto) 0.3, Basophils # (Auto) 0.0, Immature Granulocyte # (Auto) 0.1 AVIS CRAWFORD DO Sep 29, 2020 08:42
[2020-09-29] MEDS ORDERED: IBUP-844 PO (08:44)
[2020-09-29] MEDS ORDERED: OXC5T PO (08:44)
[2020-09-29] MEDS ORDERED: ACET-93 PO (08:44)
[2020-09-29] MEDS ORDERED: DCS100C PO (08:44)
--- NOTE | 2020-09-29 08:45 | Short Stay Summary ---
Discharge Summary Hospital Course Final Diagnosis: previous cesrean section, Hospital Course Date of Admission: Sep 28, 2020 at 06:11 Admission Diagnosis : Family Physician/Provider: Maggie Salter Date of Discharge: 09/29/20 Discharge Diagnosis: [ ] Hospital Course: [ ] Labs and Pending Lab Test: Laboratory Tests 09/29/20 05:10: White Blood Count 11.5H, Red Blood Count 2.98L, Hemoglobin 9.4L, Hematocrit 29L, Mean Corpuscular Volume 97, Mean Corpuscular Hemoglobin 32, Mean Corpuscular Hemoglobin Concent 32, Red Cell Distribution Width 14.8H, Platelet Count 193, Mean Platelet Volume 10.3, Immature Granulocyte % (Auto) 1, Neutrophils (%) (Auto) 82H, Lymphocytes (%) (Auto) 8L, Monocytes (%) (Auto) 7, Eosinophils (%) (Auto) 2, Basophils (%) (Auto) 0, Neutrophils # (Auto) 9.4H, Lymphocytes # (Auto) 0.9L, Monocytes # (Auto) 0.8, Eosinophils # (Auto) 0.3, Basophils # (Auto) 0.0, Immature Granulocyte # (Auto) 0.1 Home Meds Active Reported Flintstones with Iron Tab Chew (Pedi Mv No.79/Ferrous Fumarate) 18 Mg Tab.chew 2 Tab PO DAILY Vitamin C (Ascorbic Acid) 500 Mg Capsule 500 Mg PO DAILY take with iron pill Slow Release Iron (Ferrous Sulfate) Unknown Strength Tablet.er 45 Mg PO DAILY take with vitamin c tab Acid Cook Roast (FAMOTIDINE) (Famotidine) 20 Mg Tablet 40 Mg PO HS take 2 (20mg) tabs Procardia (Nifedipine) 10 Mg Capsule 10 Mg PO Q6H PRN Discharge Instructions Discharge Diet: No Restrictions Activity as Tolerated: Yes (no driving for 1 week, no lifting over 25 lbs) Discharge Physical Examination General Appearance: Alert HEENT: Atraumatic Respiratory: Clear to Auscultation, Normal Air Movement Cardiovascular: Regular Rate, Normal S1, Normal S2 Abdominal: Normal Bowel Sounds, Other (inc c/d/i) Allergies: Coded Allergies: albumin colloid, human (Unverified Allergy, Unknown, NAUSEA, 08/31/17) PT. STATES SHE THROWS UP WITH ALBUMIN. SHE DOES NOT TAKE THE FLU SHOT FOR THAT REASON Discharge Summary Date of Admission Sep 28, 2020 at 06:11 Date of Discharge AVIS CRAWFORD DO Sep 29, 2020 08:45
--- NOTE | 2020-09-29 08:48 | Discharge Inst-Women's Service ---
Discharge Inst-Women's Serv Depart Medication/Instructions New, Converted or Re-Newed RX: RX on Chart Final Diagnosis previous cs previous intrauterine surgery and classical section advanced maternal age gestational hypertension contractions acute blood loss anemia Problems Reviewed?: Yes Consults/Follow Up Additional Follow Up: Yes (1 week for incision check and 6 week pp exam) Activity Activity: Activity as Tolerated Driving Instructions: No Driving for 1 Week NO SMOKING: NO SMOKING Nothing Inside Vagina: No Douching, No [place], No Tampons Diet Discharge Diet: No Restrictions Symptoms to Report to : Swelling Increased, Bleeding Excessive, Pain Increased, Fever Over 101 Degrees F, Vaginal Bleeding Increase, Cramps in Feet or Legs, Vaginal Discharge Foul For Any Problems or Questions: Contact Your Physician Skin/Wound Care Infection Signs and Symptoms: Increased Redness, Foul Odor of Wound, Increased Drainage, Skin Itchy or Has a Rash, Increased Swelling, Temperature Above 101 F Operative Area Clean and Dry: Keep Incision Clean/Dry Stitches/[place]/Dermabond: Dermabond Bathing Instructions: AVIS Nelson DO Sep 29, 2020 08:47
[2020-09-29] MEDS ORDERED: IBUPROFEN 600 MG (MOTRIN) TAB PO SCH (09:15)
[2020-09-29 09:24] VITALS: BP 132/64
[2020-09-29] MEDS: DOCUSATE SODIUM 100 MG (COLACE) CAP PO SCH (09:26)
--- NOTE | 2020-09-29 10:34 | NUR ---
Discharge instructions explained to pt with copy provided to pt along with narcotic script. Pt notified of follow up appts. Pt verbalizes understanding of instructions and signs to verify. Pt denies questions or concerns at this time. Pt awaiting medical records to finish up infant certificate for dismissal.
--- NOTE | 2020-09-29 11:15 | NUR ---
Pt ambulates off unit to private vehicle with all personal belongings, accompanied by RN. No s/s of distress noted.
== END 2020-09-29 11:15 | disposition home or self-care (01) | DRG 787 ==
LOC: LDRP 06:11
PROVIDERS: ADMIT Obstetrics & Gynecology; ATTEND Obstetrics & Gynecology
PROC: 10D00Z1 Extraction of Products of Conception, Low, Open Approach (ICD-10-PCS; principal; 2020-09-28 08:14)
DX: O34.212 Maternal care for vertical scar from previous cesarean delivery (principal); D62 Acute posthemorrhagic anemia; Z3A.37 37 weeks gestation of pregnancy; Z37.0 Single live birth; O90.81 Anemia of the puerperium
CPT/HCPCS: 36415; 81000; 85025; 86850; 86900; 86901; 87088